=== PATIENT | female | born 2000 | race American Indian/Alaskan Native ===

== ENCOUNTER 2018-06-16 23:12 | Emergency (ER) | payer MEDICAID, OTHER ==
--- NOTE | 2018-06-16 23:57 | EDM.PDOC ---
ED HPI GENERAL MEDICAL PROBLEM - General Chief Complaint: Laceration Stated Complaint: POSSIBLE STITCHES NEEDED ON HAND [id number] Time Seen by Provider: 06/16/18 23:49 Source of Information: Reports: Patient History Limitations: Reports: No Limitations - History of Present Illness INITIAL COMMENTS - FREE TEXT/NARRATIVE: cut left palm with knife while at work 1.5 cm superficial flab laceration base of palm 830 tonight Left Hand Pain Score (Numeric/FACES): 3 Past Medical History - Past Health History Medical/Surgical History: Denies Medical/Surgical History Social & Family History - Tobacco Use Smoking Status *Q: Light Tobacco Smoker Years of Tobacco use: 1 Packs/Tins Daily: 0.5 - Recreational Drug Use Recreational Drug Use: No ED ROS GENERAL - Review of Systems Review Of Systems: ROS reveals no pertinent complaints other than HPI. ED EXAM, SKIN/RASH Exam: See Below Exam Limited By: No Limitations General Appearance: Alert, No Apparent Distress Eye Exam: Bilateral Eye: EOMI Ears: Normal External Exam Nose: Normal Inspection Throat/Mouth: Normal Lips, Normal Voice Head: Atraumatic, Normocephalic Neck: Full Range of Motion Respiratory/Chest: No Respiratory Distress Cardiovascular: Normal Peripheral Pulses Skin: Warm, Dry, Wound/Incision (1.5 laseration base of palm left hand no active bleeding). No: Intact Associated features: Tenderness. No: Warmth, Swelling ED SKIN PROCEDURES - Laceration/Wound Repair Left Lower Dorsal Hand Lac/Wound length In cm: 1.5 (superficial flap) Appearance: Superficial Distal NVT: Neuro & Vascular Intact Skin Prep: Chlorhexidine (Hibiciens), Saline Closed with: Wound Adhesive, Steri-Strips Sterile Dressing Applied: Nurse Tetanus Status Addressed: Yes Complications: No Course - Vital Signs Last Recorded V/S: Last Vital Signs Temp 98.6 F 06/16/18 23:16 Pulse 72 06/16/18 23:16 Resp 16 06/16/18 23:16 BP 145/69 H 06/16/18 23:16 Pulse Ox 97 06/16/18 23:16 Departure - Departure Time of Disposition: 23:57 Disposition: Home, Self-Care 01 Condition: Good Clinical Impression: Broken skin - Discharge Information Instructions: Laceration Care, Adult, [id number] Forms: ED Department Discharge Additional Instructions: keep clean and dry cover with bandaide, use gloves while at work follow up redness drainage or swelling
== END 2018-06-17 00:04 | disposition home or self-care (01) ==
LOC: DL.ED 23:12
DX: S61.412A Laceration without foreign body of left hand, initial encounter (principal); W26.0XXA Contact with knife, initial encounter; F17.210 Nicotine dependence, cigarettes, uncomplicated
CPT/HCPCS: 12001; 99283

== ENCOUNTER 2023-02-13 08:19 | Emergency (ER) | payer OTHER ==
[2023-02-13 09:09] LABS: ANION GAP 17.9 mEq/L (7-13)
[2023-02-13] MEDS: Potassium Chloride 10 MEQ Tab.ER PO ONE (09:18)
== END 2023-02-13 09:23 ==
LOC: EDSEX → DL.ED 08:19
DX: S93.402A Sprain of unspecified ligament of left ankle, initial encounter (principal); R45.851 Suicidal ideations; F10.920 Alcohol use, unspecified with intoxication, uncomplicated; E87.6 Hypokalemia; Z88.0 Allergy status to penicillin
CPT/HCPCS: 36415; 73610-LT; 80053; 80143; 80179; 80307; 85025; 99284; A9270-GY